=== PATIENT | female | born 1950 | race Caucasian/White ===

== ENCOUNTER → 2017-01-17 | Outpatient (CLI) | payer MEDICARE ==
[~2017-01-17] MED LIST: ANAPROX DS550 MG PO; LIDEX0.05% T; ZANTAC150 MG PO; ZOFRAN4 MG PO
== END | disposition home or self-care (01) ==
LOC: US 17:54
DX: I65.23 Occlusion and stenosis of bilateral carotid arteries (principal); R53.82 Chronic fatigue, unspecified; G89.29 Other chronic pain; M54.2 Cervicalgia

== ENCOUNTER 2017-11-21 17:23 | Emergency (ER) | payer OTHER, MEDICARE | END 2017-11-21 20:28 | disposition left against medical advice (07) | LOC: ED 17:23 | DX: R41.0 Disorientation, unspecified (principal); R51 Headache; R53.83 Other fatigue; F17.200 Nicotine dependence, unspecified, uncomplicated; Z88.1 Allergy status to other antibiotic agents; Z88.7 Allergy status to serum and vaccine; Z88.8 Allergy status to other drugs, medicaments and biological substances; V43.92XA Unspecified car occupant injured in collision with other type car in traffic accident, initial encounter; Y93.89 Activity, other specified; Y92.481 Parking lot as the place of occurrence of the external cause; Y99.8 Other external cause status ==